=== PATIENT | female | born 1975 | race African-American/Black ===

== ENCOUNTER → 2016-09-26 | Outpatient (CLI) | payer MEDICARE, BC ==
[2016-01-03 12:40] VITALS: BP 98/75
[~2016-09-26] MED LIST: ARTANE PEG; ASCO-78 GT; BACL10TA PEG; CETI10CA PO; CETI10TA22 GT; DOCU50CA6 PO; DOXY50CA PEG; LORA-434 PEG; METO5TAB55 PEG; TIZA6CAP3 PO; ZINC50TA29 GT; ZINC50TA33 PEG; [UNRECOGNIZED DRUG - CODE] PO
[2016-09-26 12:11] LABS: BASO # 0.1 x10^3/uL (0.0-0.2); BASO % 0 % (0-3); EOS % 1 % (0-3); HEMATOCRIT 40.1 % (36.0-47.0); HEMOGLOBIN 13.2 g/dL (12.0-15.5); LYMPH # 3.8 x10^3/uL (1.0-4.8); LYMPH % 32 % (24-48); MEAN CORPUSCULAR HEMOGLOBIN 29 pg (25-35); MEAN CORPUSCULAR HGB CONC 33 g/dL (31-37); MEAN CORPUSCULAR VOLUME 88 fL (79-100); MONO % 8 % (0-9); NEUT % 59 % (31-73); PLATELET COUNT 197 x10^3/uL (140-400); RED BLOOD COUNT 4.54 x10^6/uL (3.50-5.40); RED CELL DISTRIBUTION WIDTH 13.1 % (11.5-14.5); WHITE BLOOD COUNT 11.8 x10^3/uL (4.0-11.0)
[2016-09-26 12:23] LABS: ALBUMIN 3.8 g/dL (3.4-5.0); ALBUMIN/GLOBULIN RATIO 0.7 (1.0-1.7); CALCIUM 8.9 mg/dL (8.5-10.1); CREATININE 0.9 mg/dL (0.6-1.0); GFR 83.5; POTASSIUM 4.1 mmol/L (3.5-5.1); TOTAL BILIRUBIN 0.4 mg/dL (0.2-1.0); TOTAL PROTEIN 8.9 g/dL (6.4-8.2)
== END | disposition home or self-care (01) ==
LOC: LAB 11:13
PROVIDERS: ATTEND Internal Medicine
DX: Z93.1 Gastrostomy status (principal); G93.1 Anoxic brain damage, not elsewhere classified
CPT/HCPCS: 36415; 80053; 85027

== ENCOUNTER → 2016-12-18 | Day surgery (SDC) | payer MEDICARE, BC ==
[~2016-12-18] MED LIST changes: +ACET160S PO; +CITA20TA5 PO; +CITR473S3 PO; +GLYCOPYRROLATE 1 MG/5 ML VIAL. ONE; +HYDROmorphone 2 MG/ML VIAL IV PRN; +IV RINGERS,LACTATED 1000ML 1,000 ML IV SCH; +KETAMINE HCL 500 MG/10 ML VIAL. ONE; +LIDOCAINE 1% PF 2 ML VIAL. ID PRN; +LIDOCAINE 2% PF Vial for OR 5 ML VIAL. ONE; +MIDAZOLAM HCL/PF 2 MG/2 ML VIAL. ONE; +MORPHINE SULFATE 2 MG/ML DISP.SYRIN. IV PRN; +ONDANSETRON PF 4 MG/2 ML VIAL. IV PRN; +PROPOFOL 0 ML IV ONE; +fentaNYL PF VIAL 100 MCG/2 ML VIAL IV PRN
[2016-12-18 13:47] VITALS: BP 107/70
--- NOTE | 2016-12-18 15:11 | HP ---
ADMIT DATE: 12/18/2016 DATE OF SERVICE: 12/18/2016 REASON: Dysfunctional G-tube oropharyngeal dysphagia. HISTORY OF PRESENT ILLNESS: A 41-year-old -Sudanese female whose past medical history is significant for anoxic brain injury, history of nephrolithiasis and anemia as well as gastroparesis, is seen with a dysfunctional G-tube. She has been on the tube for the past year and a half, had increased difficulties with feeding as well discoloration of the tube, family has requested replacement. PAST MEDICAL HISTORY: Anoxic brain injury, oropharyngeal dysphagia, nephrolithiasis, reflux. ALLERGIES: None. MEDICATIONS: Include acetaminophen, vitamin C, Zyrtec, citalopram, Colace, Ativan, Reglan, Zanaflex and Artane. SOCIAL HISTORY: She is cared by her mother. She does not drink or smoke. FAMILY HISTORY: Noncontributory. REVIEW OF SYSTEMS: Per records. PHYSICAL EXAMINATION: GENERAL: Reveals a female who has traumatic brain injury. VITAL SIGNS: Temperature 98.4, pulse 57, respirations 20. HEENT: Head is normocephalic, atraumatic. Pupils and extraocular muscles not tested. NECK: Reveal previous trach. LUNGS: Clear. CARDIOVASCULAR: Reveals an S1, S2 without S3, S4 or appreciable murmur. ABDOMEN: Soft abdomen with intact G-tube in the left upper quadrant. EXTREMITIES: She has flexion contractures on extremities. IMPRESSION: Oropharyngeal dysphagia with dysfunctional G-tube, will recommend EGD with PEG replacement. Risks and benefits of procedure including risk of perforation during the operation have been discussed. The patient is willing to proceed at this time. GUS FISCHER MD DR: JAMIA/kyler JOB#: [id number] / [id number]
== END | disposition home or self-care (01) ==
LOC: ENDOS 11:26
PROVIDERS: ATTEND Internal Medicine Gastroenterology
DX: K29.50 Unspecified chronic gastritis without bleeding (principal); K94.29 Other complications of gastrostomy; Y84.8 Other medical procedures as the cause of abnormal reaction of the patient, or of later complication, without mention of misadventure at the time of the procedure; Y82.8 Other medical devices associated with adverse incidents
CPT/HCPCS: 43246; J2250; J3490; J2704; J2001

== ENCOUNTER → 2017-08-27 | Outpatient (CLI) | payer MEDICARE, BC ==
[2017-08-27 11:43] LABS: ADD MAN DIFF? NO
[2017-08-27 12:01] LABS: BASO % 1 % (0-3); EOS # 0.2 x10^3/uL (0.0-0.7); EOS % 2 % (0-3); HEMATOCRIT 37.8 % (36.0-47.0); HEMOGLOBIN 12.6 g/dL (12.0-15.5); LYMPH # 3.6 x10^3/uL (1.0-4.8); LYMPH % 39 % (24-48); MEAN CORPUSCULAR HEMOGLOBIN 30 pg (25-35); MEAN CORPUSCULAR HGB CONC 33 g/dL (31-37); MEAN CORPUSCULAR VOLUME 89 fL (79-100); MONO # 0.8 x10^3/uL (0.0-1.1); MONO % 9 % (0-9); NEUT # 4.5 x10^3uL (1.8-7.7); NEUT % 49 % (31-73); PLATELET COUNT 204 x10^3/uL (140-400); RED BLOOD COUNT 4.27 x10^6/uL (3.50-5.40); RED CELL DISTRIBUTION WIDTH 13.6 % (11.5-14.5); WHITE BLOOD COUNT 9.1 x10^3/uL (4.0-11.0)
[2017-08-27 12:33] LABS: ALBUMIN 3.2 g/dL (3.4-5.0); ALBUMIN/GLOBULIN RATIO 0.6 (1.0-1.7); ALK PHOS 70 U/L (46-116); ALT (SGPT) 23 U/L (14-59); ANION GAP 5 (6-14); AST (SGOT) 19 U/L (15-37); BLOOD UREA NITROGEN 16 mg/dL (7-20); BUN/CREATININE RATIO 18 (6-20); CARBON DIOXIDE 28 mmol/L (21-32); CHLORIDE 105 mmol/L (98-107); CREATININE 0.9 mg/dL (0.6-1.0); GFR 83.1; GLUCOSE 86 mg/dL (70-99); POTASSIUM 4.4 mmol/L (3.5-5.1); SODIUM 138 mmol/L (136-145); TOTAL BILIRUBIN 0.4 mg/dL (0.2-1.0); TOTAL PROTEIN 8.2 g/dL (6.4-8.2)
[2017-08-27 12:37] LABS: THYROID STIM HORMONE (TSH) 4.345 uIU/mL (0.358-3.74)
== END | disposition home or self-care (01) ==
LOC: LAB 11:22
DX: Z48.89 Encounter for other specified surgical aftercare (principal); R63.5 Abnormal weight gain; Z93.1 Gastrostomy status
CPT/HCPCS: 36415; 80053; 84443; 85025

== ENCOUNTER 2017-09-23 12:38 | Emergency (ER) | payer MEDICARE, BC ==
[2017-09-23 13:30] LABS: ADD MAN DIFF? NO
[2017-09-23 13:33] LABS: BASO # 0.1 x10^3/uL (0.0-0.2); BASO % 0 % (0-3); EOS % 0 % (0-3); HEMATOCRIT 33.8 % (36.0-47.0); HEMOGLOBIN 11.4 g/dL (12.0-15.5); LYMPH # 1.8 x10^3/uL (1.0-4.8); LYMPH % 12 % (24-48); MEAN CORPUSCULAR HEMOGLOBIN 29 pg (25-35); MEAN CORPUSCULAR HGB CONC 34 g/dL (31-37); MEAN CORPUSCULAR VOLUME 86 fL (79-100); MONO # 1.8 x10^3/uL (0.0-1.1); MONO % 12 % (0-9); NEUT # 11.6 x10^3uL (1.8-7.7); NEUT % 76 % (31-73); PLATELET COUNT 184 x10^3/uL (140-400); RED BLOOD COUNT 3.91 x10^6/uL (3.50-5.40); RED CELL DISTRIBUTION WIDTH 13.2 % (11.5-14.5); WHITE BLOOD COUNT 15.2 x10^3/uL (4.0-11.0)
[2017-09-23 13:34] LABS: BILIRUBIN,URINE NEGATIVE (NEG); GLUCOSE,URINE NEGATIVE (NEG); NITRITE,URINE NEGATIVE (NEG); PROTEIN,URINE 100 mg/dL (NEG-TRACE)
[2017-09-23 13:40] LABS: ANION GAP 10 (6-14); BLOOD UREA NITROGEN 20 mg/dL (7-20); BUN/CREATININE RATIO 13 (6-20); CALCIUM 8.3 mg/dL (8.5-10.1); CARBON DIOXIDE 25 mmol/L (21-32); CHLORIDE 102 mmol/L (98-107); CREATININE 1.5 mg/dL (0.6-1.0); GFR 46.1; GLUCOSE 105 mg/dL (70-99); SODIUM 137 mmol/L (136-145)
[2017-09-23 13:44] LABS: CLARITY,URINE HAZY; COLOR,URINE DK YELLOW
[2017-09-23 13:45] LABS: BACTERIA,URINE MANY /HPF (0-FEW); RBC,URINE OCC /HPF (0-2); SQUAMOUS EPITHELIAL CELL,UR MOD /LPF
[2017-09-23 13:46] LABS: ALBUMIN 2.8 g/dL (3.4-5.0); ALBUMIN/GLOBULIN RATIO 0.6 (1.0-1.7); ALK PHOS 76 U/L (46-116); ALT (SGPT) 21 U/L (14-59); AST (SGOT) 20 U/L (15-37); TOTAL BILIRUBIN 0.7 mg/dL (0.2-1.0); TOTAL PROTEIN 7.8 g/dL (6.4-8.2)
[2017-09-23 13:49] LABS: LACTIC ACID 1.1 mmol/L (0.4-2.0)
[2017-09-23] MEDS: IV NORMAL SALINE 1000ML BAG 1,000 ML IV (14:24)
[2017-09-23] MEDS: tiZANidine 4 MG TABLET. GT (14:50)
== END 2017-09-23 16:24 | disposition home or self-care (01) ==
LOC: ER 12:38
DX: N39.0 Urinary tract infection, site not specified (principal); Z90.49 Acquired absence of other specified parts of digestive tract; Z98.890 Other specified postprocedural states
CPT/HCPCS: 36415; 71045; 80053; 81001; 83605; 85025; 87040; 87086; 87186; 96365; 99285-25; J0690; J7030; P9612

== ENCOUNTER 2017-09-27 12:32 | Inpatient (IN) | payer MEDICARE, BC ==
[2017-09-27 13:35] LABS: BILIRUBIN,URINE NEGATIVE (NEG); CLARITY,URINE CLEAR; COLOR,URINE YELLOW; GLUCOSE,URINE NEGATIVE (NEG); NITRITE,URINE NEGATIVE (NEG); PROTEIN,URINE 100 mg/dL (NEG-TRACE)
[2017-09-27 13:45] LABS: BACTERIA,URINE 0 /HPF (0-FEW); SQUAMOUS EPITHELIAL CELL,UR MOD /LPF
[2017-09-27] MEDS: MORPHINE SULFATE 4 MG/ML DISP.SYRIN. IV (14:49)
[2017-09-27] MEDS: IV NORMAL SALINE 1000ML BAG 1,000 ML IV ×4 (14:50→21:50)
[2017-09-27 15:01] LABS: ADD MAN DIFF? YES; BASO % 1 % (0-3); EOS % 1 % (0-3); HEMATOCRIT 37.7 % (36.0-47.0); HEMOGLOBIN 12.7 g/dL (12.0-15.5); LYMPH # 0.4 x10^3/uL (1.0-4.8); LYMPH % 9 % (24-48); MEAN CORPUSCULAR HEMOGLOBIN 29 pg (25-35); MEAN CORPUSCULAR HGB CONC 34 g/dL (31-37); MEAN CORPUSCULAR VOLUME 86 fL (79-100); MONO # 0.1 x10^3/uL (0.0-1.1); MONO % 2 % (0-9); NEUT # 3.4 x10^3uL (1.8-7.7); NEUT % 88 % (31-73); PLATELET COUNT 188 x10^3/uL (140-400); RED BLOOD COUNT 4.36 x10^6/uL (3.50-5.40); RED CELL DISTRIBUTION WIDTH 13.7 % (11.5-14.5); WHITE BLOOD COUNT 3.9 x10^3/uL (4.0-11.0)
[2017-09-27 15:14] LABS: ANION GAP 10 (6-14); BLOOD UREA NITROGEN 28 mg/dL (7-20); BUN/CREATININE RATIO 19 (6-20); CALCIUM 9.2 mg/dL (8.5-10.1); CARBON DIOXIDE 27 mmol/L (21-32); CHLORIDE 101 mmol/L (98-107); CREATININE 1.5 mg/dL (0.6-1.0); GFR 46.1; GLUCOSE 85 mg/dL (70-99); POTASSIUM 4.1 mmol/L (3.5-5.1); SODIUM 138 mmol/L (136-145)
[2017-09-27 15:20] LABS: ALBUMIN 2.3 g/dL (3.4-5.0); ALBUMIN/GLOBULIN RATIO 0.4 (1.0-1.7); ALK PHOS 333 U/L (46-116); ALT (SGPT) 74 U/L (14-59); AST (SGOT) 57 U/L (15-37); TOTAL BILIRUBIN 0.9 mg/dL (0.2-1.0); TOTAL PROTEIN 7.6 g/dL (6.4-8.2)
[2017-09-27 15:45] LABS: LIPASE 178 U/L (73-393)
[2017-09-27 15:47] LABS: LACTIC ACID 4.1 mmol/L (0.4-2.0)
[2017-09-27 15:55] LABS: % BANDS 15 % (0-9); % EOS 1 % (0-5); % LYMPHS 10 % (24-48); % SEGS 74 % (35-66); PLT ESTIMATE ADEQUATE (ADEQUATE); TOXIC VACUOLATION PRESENT
[2017-09-27] MEDS: IOHEXOL 300 MG/ML 100ML VIAL. IV (16:15)
[2017-09-27] MEDS ORDERED: CONTRAST GIVEN. MC (16:15)
[2017-09-27] MEDS: IBUPROFEN 100 MG/5 ML ORAL.SUSP. GT (16:57)
[2017-09-27] MEDS ORDERED: PIP/TAZO PER PHARMACY MC (17:00)
[2017-09-27] MEDS ORDERED: hydrALAZINE 20 MG/ML VIAL. IVP (17:00)
[2017-09-27] MEDS ORDERED: DOCUSATE SODIUM 100 MG CAPSULE. PO (17:00)
[2017-09-27] MEDS ORDERED: PIPERACILLIN/TAZOBACTAM 3.375 GM in IV NORMAL SALINE 50ML 50 ML IV (17:15)
[2017-09-27] MEDS: PIPERACILLIN/TAZOBACTAM 4.5 GM in IV NORMAL SALINE 100ML 100 ML IV (17:55)
[2017-09-27] MEDS ORDERED: PIPERACILLIN/TAZOBACTAM 4.5 GM in IV NORMAL SALINE 100ML 100 ML IV (18:00)
[2017-09-27] MEDS: VANCOMYCIN 2 GM in IV NORMAL SALINE 500ML BAG 500 ML IV (18:03)
[2017-09-27] MEDS: LIDOCAINE 1% Multi-Dose 20 ML VIAL. INJ (18:15)
[2017-09-27] MEDS ORDERED: ROCURONIUM 50 MG/5 ML VIAL. (19:00)
[2017-09-27] MEDS ORDERED: PROPOFOL 10 MG/ML (20ML) VIAL. IV (19:00)
[2017-09-27] MEDS ORDERED: PHENYLEPHRINE in 0.9% NACL PF 1 MG/10 ML SYRINGE. IV (19:00)
[2017-09-27] MEDS ORDERED: GLYCOPYRROLATE 1 MG/5 ML VIAL. (19:00)
[2017-09-27] MEDS ORDERED: NEOSTIGMINE METHYLSULFATE 5 MG/5 ML SYRINGE. (19:00)
[2017-09-27] MEDS ORDERED: NOREPINEPHRIN 8MG/250ML PREMIX 250 ML IV (19:15)
[2017-09-27] MEDS: VANCOMYCIN PER PHARMACY MC ×2 (19:29→19:39)
[2017-09-27] MEDS: ENOXAPARIN 40 MG/0.4 ML SYRINGE. SQ (20:11)
[2017-09-27] MEDS: FAMOTIDINE 20 MG/2 ML VIAL IVP (21:50)
[2017-09-27 22:22] LABS: LACTIC ACID 1.6 mmol/L (0.4-2.0)
[2017-09-28] MEDS: PIPERACILLIN/TAZOBACTAM 3.375 GM in IV NORMAL SALINE 50ML 50 ML IV ×4 (00:11→18:33)
[2017-09-28] MEDS: IV NORMAL SALINE 1000ML BAG 1,000 ML IV ×2 (06:01→21:04)
[2017-09-28 06:24] LABS: BASO # 0.1 x10^3/uL (0.0-0.2); BASO % 0 % (0-3); EOS # 0.1 x10^3/uL (0.0-0.7); EOS % 1 % (0-3); HEMATOCRIT 27.8 % (36.0-47.0); HEMOGLOBIN 9.4 g/dL (12.0-15.5); LYMPH # 1.2 x10^3/uL (1.0-4.8); LYMPH % 6 % (24-48); MEAN CORPUSCULAR HEMOGLOBIN 29 pg (25-35); MEAN CORPUSCULAR HGB CONC 34 g/dL (31-37); MEAN CORPUSCULAR VOLUME 85 fL (79-100); MONO # 1.3 x10^3/uL (0.0-1.1); MONO % 7 % (0-9); NEUT % 87 % (31-73); PLATELET COUNT 188 x10^3/uL (140-400); RED BLOOD COUNT 3.27 x10^6/uL (3.50-5.40); RED CELL DISTRIBUTION WIDTH 13.9 % (11.5-14.5); WHITE BLOOD COUNT 19.7 x10^3/uL (4.0-11.0)
[2017-09-28 06:31] LABS: ADD MAN DIFF? YES
[2017-09-28 06:35] LABS: ANION GAP 8 (6-14); BLOOD UREA NITROGEN 22 mg/dL (7-20); CARBON DIOXIDE 24 mmol/L (21-32); CHLORIDE 112 mmol/L (98-107); CREATININE 1.6 mg/dL (0.6-1.0); GFR 42.8; GLUCOSE 75 mg/dL (70-99); POTASSIUM 4.1 mmol/L (3.5-5.1); SODIUM 144 mmol/L (136-145)
[2017-09-28 06:44] LABS: LACTIC ACID 1.1 mmol/L (0.4-2.0)
[2017-09-28 07:56] LABS: % BANDS 20 % (0-9); % LYMPHS 4 % (24-48); % MONOS 6 % (0-10); % SEGS 70 % (35-66); PLT ESTIMATE ADEQUATE (ADEQUATE); TOXIC VACUOLATION PRESENT
[2017-09-28] MEDS: VANCOMYCIN PER PHARMACY MC (08:49)
[2017-09-28] MEDS ORDERED: CETIRIZINE HCL 10 MG TABLET. GT (09:45)
[2017-09-28] MEDS: DOCUSATE 100 MG/10 ML SOLUTION. PO (10:00)
[2017-09-28 10:18] LABS: INR 1.2 (0.8-1.1); PARTIAL THROMBOPLASTIN TIME 33 SEC (24-38)
[2017-09-28] MEDS ORDERED: IV RINGERS,LACTATED 1000ML 1,000 ML IV ×2 (10:23→14:45)
[2017-09-28 11:14] LABS: ALK PHOS 198 U/L (46-116); ALT (SGPT) 74 U/L (14-59); AST (SGOT) 54 U/L (15-37); DIRECT BILIRUBIN 0.5 mg/dL (0.0-0.2); TOTAL BILIRUBIN 0.9 mg/dL (0.2-1.0); TOTAL PROTEIN 6.7 g/dL (6.4-8.2)
[2017-09-28] MEDS: fentaNYL PF VIAL 100 MCG/2 ML VIAL IV ×5 (12:25→15:22)
[2017-09-28] MEDS ORDERED: IOHEXOL 240 MG/ML 50ML VIAL. (13:05)
[2017-09-28] MEDS ORDERED: LIDOCAINE WITH 8.4% SOD BICARB 3 ML DISP.SYRIN. (13:05)
[2017-09-28] MEDS: LIDOCAINE WITH 8.4% SOD BICARB 3 ML DISP.SYRIN. IJ (13:15)
[2017-09-28] MEDS: IOHEXOL 240 MG/ML 50ML VIAL. INT ART (13:15)
[2017-09-28] MEDS ORDERED: fentaNYL PF VIAL 100 MCG/2 ML VIAL ×3 (14:26→15:07)
[2017-09-28] MEDS ORDERED: fentaNYL PF VIAL 100 MCG/2 ML VIAL IV (14:45)
[2017-09-28] MEDS ORDERED: ONDANSETRON PF 4 MG/2 ML VIAL. IV (14:45)
[2017-09-28] MEDS ORDERED: LIDOCAINE 1% PF 2 ML VIAL. ID (14:45)
[2017-09-28] MEDS ORDERED: MORPHINE SULFATE 2 MG/ML DISP.SYRIN. ×2 (15:07→15:48)
[2017-09-28] MEDS: MORPHINE SULFATE 2 MG/ML DISP.SYRIN. IV ×4 (15:16→16:02)
[2017-09-28] MEDS ORDERED: PROCHLORPERAZINE 10 MG/2 ML VIAL. (15:28)
[2017-09-28] MEDS: PROCHLORPERAZINE 10 MG/2 ML VIAL. IV ×2 (15:34→15:46)
[2017-09-28] MEDS ORDERED: VANCOMYCIN 1.25 GM in IV NORMAL SALINE 250ML 250 ML IV (18:00)
[2017-09-28] MEDS: LORazepam 1 MG TABLET PEG ×2 (18:26→18:31)
[2017-09-28] MEDS: ACETAMINOPHEN 325 MG TABLET. PO (18:26)
[2017-09-28] MEDS: CITALOPRAM 20 MG TABLET. PO (18:26)
[2017-09-28] MEDS: ENOXAPARIN 40 MG/0.4 ML SYRINGE. SQ (18:34)
[2017-09-28 20:15] LABS: MRSA BY PCR Negative (Negative)
[2017-09-29] MEDS: LORazepam 1 MG TABLET PEG ×4 (00:07→21:30)
[2017-09-29] MEDS: PIPERACILLIN/TAZOBACTAM 3.375 GM in IV NORMAL SALINE 50ML 50 ML IV ×4 (00:08→18:32)
[2017-09-29] MEDS: FAMOTIDINE 20 MG/2 ML VIAL IVP ×2 (00:08→21:30)
[2017-09-29] MEDS: tiZANidine 4 MG TABLET. PO (00:23)
[2017-09-29] MEDS: traMADol 50 MG TABLET PO (00:23)
[2017-09-29] MEDS: IV NORMAL SALINE 1000ML BAG 1,000 ML IV ×3 (05:33→21:34)
[2017-09-29] MEDS: ACETAMINOPHEN 325 MG TABLET. PO (10:48)
[2017-09-29] MEDS: DOCUSATE 100 MG/10 ML SOLUTION. PO (10:48)
[2017-09-29] MEDS: CITALOPRAM 20 MG TABLET. PO (10:48)
[2017-09-29] MEDS: fentaNYL PF VIAL 100 MCG/2 ML VIAL IV (10:49)
[2017-09-29] MEDS: MORPHINE SULFATE 2 MG/ML DISP.SYRIN. IV ×3 (13:41→21:30)
[2017-09-29 17:47] LABS: VANC TR 5.3 mcg/mL (10.0-20.0)
[2017-09-29] MEDS: ENOXAPARIN 40 MG/0.4 ML SYRINGE. SQ (18:36)
[2017-09-30] MEDS: PIPERACILLIN/TAZOBACTAM 3.375 GM in IV NORMAL SALINE 50ML 50 ML IV ×2 (01:00→06:34)
[2017-09-30] MEDS: MORPHINE SULFATE 2 MG/ML DISP.SYRIN. IV ×3 (03:20→20:11)
[2017-09-30] MEDS: IV NORMAL SALINE 1000ML BAG 1,000 ML IV ×3 (03:21→16:38)
[2017-09-30] MEDS: DOCUSATE 100 MG/10 ML SOLUTION. PO (09:58)
[2017-09-30] MEDS: LORazepam 1 MG TABLET PEG ×3 (09:58→20:12)
[2017-09-30] MEDS: CITALOPRAM 20 MG TABLET. PO (09:58)
[2017-09-30 10:31] LABS: BILIRUBIN,URINE NEGATIVE (NEG); CLARITY,URINE TURBID; COLOR,URINE YELLOW; GLUCOSE,URINE NEGATIVE (NEG); NITRITE,URINE NEGATIVE (NEG); PROTEIN,URINE 100 mg/dL (NEG-TRACE)
[2017-09-30 10:46] LABS: WBC,URINE TNTC /HPF (0-4)
[2017-09-30 10:47] LABS: BACTERIA,URINE MODERATE /HPF (0-FEW); RBC,URINE >40 /HPF (0-2)
[2017-09-30] MEDS: ACETAMINOPHEN 325 MG TABLET. PO (11:41)
[2017-09-30] MEDS: tiZANidine 4 MG TABLET. PO ×2 (11:44→20:11)
[2017-09-30] MEDS ORDERED: POLYETHYLENE GLYCOL 3350 17 GM PACKET. PEG (12:45)
[2017-09-30] MEDS: MEROPENEM 500 MG in IV NORMAL SALINE 50ML 50 ML IV ×2 (13:11→20:10)
[2017-09-30 13:39] LABS: ADD MAN DIFF? NO
[2017-09-30 13:46] LABS: BASO % 0 % (0-3); EOS # 0.1 x10^3/uL (0.0-0.7); EOS % 1 % (0-3); HEMATOCRIT 23.7 % (36.0-47.0); LYMPH # 1.9 x10^3/uL (1.0-4.8); LYMPH % 11 % (24-48); MEAN CORPUSCULAR HEMOGLOBIN 29 pg (25-35); MEAN CORPUSCULAR HGB CONC 34 g/dL (31-37); MEAN CORPUSCULAR VOLUME 85 fL (79-100); MONO # 1.2 x10^3/uL (0.0-1.1); MONO % 7 % (0-9); NEUT # 13.4 x10^3uL (1.8-7.7); NEUT % 80 % (31-73); PLATELET COUNT 185 x10^3/uL (140-400); RED BLOOD COUNT 2.79 x10^6/uL (3.50-5.40); RED CELL DISTRIBUTION WIDTH 13.9 % (11.5-14.5); WHITE BLOOD COUNT 16.7 x10^3/uL (4.0-11.0)
[2017-09-30 14:20] LABS: ALBUMIN 1.7 g/dL (3.4-5.0); ALBUMIN/GLOBULIN RATIO 0.4 (1.0-1.7); ALK PHOS 207 U/L (46-116); ALT (SGPT) 43 U/L (14-59); ANION GAP 13 (6-14); AST (SGOT) 30 U/L (15-37); BLOOD UREA NITROGEN 16 mg/dL (7-20); BUN/CREATININE RATIO 15 (6-20); CALCIUM 7.4 mg/dL (8.5-10.1); CARBON DIOXIDE 18 mmol/L (21-32); CHLORIDE 118 mmol/L (98-107); CREATININE 1.1 mg/dL (0.6-1.0); GFR 65.9; GLUCOSE 90 mg/dL (70-99); POTASSIUM 3.6 mmol/L (3.5-5.1); SODIUM 149 mmol/L (136-145); TOTAL BILIRUBIN 0.7 mg/dL (0.2-1.0); TOTAL PROTEIN 6.2 g/dL (6.4-8.2)
[2017-09-30] MEDS: ENOXAPARIN 40 MG/0.4 ML SYRINGE. SQ (20:11)
[2017-09-30] MEDS: FAMOTIDINE 20 MG/2 ML VIAL IVP (20:11)
[2017-10-01] MEDS ORDERED: tiZANidine 4 MG TABLET. PO ×2 (00:30)
[2017-10-01] MEDS: tiZANidine 4 MG TABLET. PO ×3 (00:52→09:48)
[2017-10-01] MEDS: MEROPENEM 500 MG in IV NORMAL SALINE 50ML 50 ML IV ×4 (00:53→17:41)
[2017-10-01] MEDS: IV NORMAL SALINE 1000ML BAG 1,000 ML IV ×3 (00:55→20:22)
[2017-10-01 06:08] LABS: ADD MAN DIFF? NO
[2017-10-01 06:19] LABS: ANION GAP 10 (6-14); BLOOD UREA NITROGEN 16 mg/dL (7-20); CALCIUM 7.8 mg/dL (8.5-10.1); CARBON DIOXIDE 20 mmol/L (21-32); CHLORIDE 118 mmol/L (98-107); GFR 73.6; GLUCOSE 103 mg/dL (70-99); POTASSIUM 3.5 mmol/L (3.5-5.1); SODIUM 148 mmol/L (136-145)
[2017-10-01 06:25] LABS: BASO % 0 % (0-3); EOS # 0.2 x10^3/uL (0.0-0.7); EOS % 1 % (0-3); HEMATOCRIT 25.6 % (36.0-47.0); HEMOGLOBIN 8.5 g/dL (12.0-15.5); LYMPH # 2.6 x10^3/uL (1.0-4.8); LYMPH % 15 % (24-48); MEAN CORPUSCULAR HEMOGLOBIN 28 pg (25-35); MEAN CORPUSCULAR HGB CONC 33 g/dL (31-37); MEAN CORPUSCULAR VOLUME 85 fL (79-100); MONO # 1.4 x10^3/uL (0.0-1.1); MONO % 8 % (0-9); NEUT # 12.7 x10^3uL (1.8-7.7); NEUT % 75 % (31-73); PLATELET COUNT 193 x10^3/uL (140-400); RED BLOOD COUNT 3.02 x10^6/uL (3.50-5.40); WHITE BLOOD COUNT 16.9 x10^3/uL (4.0-11.0)
[2017-10-01] MEDS: LORazepam 1 MG TABLET PEG ×3 (09:00→20:23)
[2017-10-01] MEDS: CITALOPRAM 20 MG TABLET. PO (09:48)
[2017-10-01] MEDS: DOCUSATE 100 MG/10 ML SOLUTION. PO (09:48)
[2017-10-01] MEDS: ACETAMINOPHEN 650 MG/20.3 ML SOLUTION. PEG (10:29)
[2017-10-01] MEDS: tiZANidine 4 MG TABLET. PEG ×2 (14:58→20:23)
[2017-10-01] MEDS: ENOXAPARIN 40 MG/0.4 ML SYRINGE. SQ (17:41)
[2017-10-01] MEDS: FAMOTIDINE 20 MG TABLET. PEG (20:23)
[2017-10-02] MEDS: MEROPENEM 500 MG in IV NORMAL SALINE 50ML 50 ML IV ×4 (00:26→16:07)
[2017-10-02] MEDS: MORPHINE SULFATE 2 MG/ML DISP.SYRIN. IV ×3 (00:27→12:03)
[2017-10-02] MEDS: IV NORMAL SALINE 1000ML BAG 1,000 ML IV ×3 (01:00→16:05)
[2017-10-02] MEDS: tiZANidine 4 MG TABLET. PEG ×4 (02:58→21:00)
[2017-10-02 05:45] LABS: ADD MAN DIFF? NO
[2017-10-02 06:07] LABS: ANION GAP 10 (6-14); BLOOD UREA NITROGEN 13 mg/dL (7-20); CARBON DIOXIDE 21 mmol/L (21-32); CHLORIDE 115 mmol/L (98-107); CREATININE 0.8 mg/dL (0.6-1.0); GFR 95.2; GLUCOSE 114 mg/dL (70-99); POTASSIUM 3.2 mmol/L (3.5-5.1); SODIUM 146 mmol/L (136-145)
[2017-10-02 06:29] LABS: BASO # 0.1 x10^3/uL (0.0-0.2); BASO % 0 % (0-3); EOS # 0.3 x10^3/uL (0.0-0.7); EOS % 1 % (0-3); HEMATOCRIT 24.1 % (36.0-47.0); LYMPH # 2.7 x10^3/uL (1.0-4.8); LYMPH % 11 % (24-48); MEAN CORPUSCULAR HEMOGLOBIN 29 pg (25-35); MEAN CORPUSCULAR HGB CONC 33 g/dL (31-37); MEAN CORPUSCULAR VOLUME 86 fL (79-100); MONO # 1.4 x10^3/uL (0.0-1.1); MONO % 6 % (0-9); NEUT # 19.4 x10^3uL (1.8-7.7); NEUT % 81 % (31-73); PLATELET COUNT 230 x10^3/uL (140-400); RED CELL DISTRIBUTION WIDTH 14.2 % (11.5-14.5); WHITE BLOOD COUNT 23.9 x10^3/uL (4.0-11.0)
[2017-10-02] MEDS: DOCUSATE 100 MG/10 ML SOLUTION. PO (08:02)
[2017-10-02] MEDS: CITALOPRAM 20 MG TABLET. PO (08:02)
[2017-10-02] MEDS: LORazepam 1 MG TABLET PEG ×3 (08:02→21:01)
[2017-10-02] MEDS: MICAFUNGIN 100 MG in IV DEXTROSE 5% 100ML 100 ML IV (12:49)
[2017-10-02] MEDS: IOHEXOL 300 MG/ML 100ML VIAL. IV (13:30)
[2017-10-02] MEDS: IOHEXOL 240 MG/ML 50ML VIAL. PO ×2 (13:30→15:30)
[2017-10-02] MEDS ORDERED: CONTRAST GIVEN. MC (13:45)
[2017-10-02] MEDS: ACETAMINOPHEN 650 MG/20.3 ML SOLUTION. PEG ×2 (16:06→23:12)
[2017-10-02] MEDS: ENOXAPARIN 40 MG/0.4 ML SYRINGE. SQ (16:06)
[2017-10-02] MEDS: FAMOTIDINE 20 MG TABLET. PEG (21:01)
[2017-10-03] MEDS: tiZANidine 4 MG TABLET. PEG ×7 (00:31→23:34)
[2017-10-03] MEDS: MEROPENEM 500 MG in IV NORMAL SALINE 50ML 50 ML IV ×5 (00:32→23:34)
[2017-10-03] MEDS: IV NORMAL SALINE 1000ML BAG 1,000 ML IV ×4 (00:32→23:34)
[2017-10-03 06:25] LABS: ANION GAP 8 (6-14); BLOOD UREA NITROGEN 8 mg/dL (7-20); CALCIUM 7.2 mg/dL (8.5-10.1); CARBON DIOXIDE 23 mmol/L (21-32); CHLORIDE 111 mmol/L (98-107); CREATININE 0.8 mg/dL (0.6-1.0); GFR 95.2; GLUCOSE 102 mg/dL (70-99); POTASSIUM 3.1 mmol/L (3.5-5.1); SODIUM 142 mmol/L (136-145)
[2017-10-03] MEDS: DOCUSATE 100 MG/10 ML SOLUTION. PO (07:34)
[2017-10-03] MEDS: ACETAMINOPHEN 650 MG/20.3 ML SOLUTION. PEG (07:42)
[2017-10-03] MEDS: CITALOPRAM 20 MG TABLET. PO (07:42)
[2017-10-03] MEDS: LORazepam 1 MG TABLET PEG ×3 (07:42→19:58)
[2017-10-03] MEDS: MICAFUNGIN 100 MG in IV DEXTROSE 5% 100ML 100 ML IV (11:53)
[2017-10-03 12:14] LABS: ADD MAN DIFF? NO; BASO % 0 % (0-3); EOS # 0.4 x10^3/uL (0.0-0.7); EOS % 2 % (0-3); HEMATOCRIT 24.6 % (36.0-47.0); HEMOGLOBIN 8.3 g/dL (12.0-15.5); LYMPH # 3.4 x10^3/uL (1.0-4.8); LYMPH % 22 % (24-48); MEAN CORPUSCULAR HEMOGLOBIN 29 pg (25-35); MEAN CORPUSCULAR HGB CONC 34 g/dL (31-37); MEAN CORPUSCULAR VOLUME 85 fL (79-100); MONO # 1.4 x10^3/uL (0.0-1.1); MONO % 9 % (0-9); NEUT # 10.5 x10^3uL (1.8-7.7); NEUT % 67 % (31-73); PLATELET COUNT 260 x10^3/uL (140-400); RED BLOOD COUNT 2.91 x10^6/uL (3.50-5.40); RED CELL DISTRIBUTION WIDTH 13.9 % (11.5-14.5); WHITE BLOOD COUNT 15.8 x10^3/uL (4.0-11.0)
[2017-10-03] MEDS: ENOXAPARIN 40 MG/0.4 ML SYRINGE. SQ (17:21)
[2017-10-03] MEDS: FAMOTIDINE 20 MG TABLET. PEG (19:59)
[2017-10-03] MEDS: ONDANSETRON PF 4 MG/2 ML VIAL. IV (20:08)
[2017-10-04] MEDS: tiZANidine 4 MG TABLET. PEG ×6 (03:41→23:51)
[2017-10-04] MEDS: MORPHINE SULFATE 2 MG/ML DISP.SYRIN. IV (03:53)
[2017-10-04] MEDS: ONDANSETRON PF 4 MG/2 ML VIAL. IV ×3 (05:23→16:35)
[2017-10-04] MEDS: MEROPENEM 500 MG in IV NORMAL SALINE 50ML 50 ML IV ×4 (05:23→23:51)
[2017-10-04] MEDS: DOCUSATE 100 MG/10 ML SOLUTION. PO (08:31)
[2017-10-04] MEDS: CITALOPRAM 20 MG TABLET. PO (08:31)
[2017-10-04] MEDS: LORazepam 1 MG TABLET PEG ×3 (08:31→20:13)
[2017-10-04] MEDS: IV NORMAL SALINE 1000ML BAG 1,000 ML IV ×3 (09:00→23:55)
[2017-10-04 11:42] LABS: ADD MAN DIFF? NO
[2017-10-04 11:51] LABS: ANION GAP 5 (6-14); BLOOD UREA NITROGEN 6 mg/dL (7-20); CALCIUM 7.3 mg/dL (8.5-10.1); CARBON DIOXIDE 26 mmol/L (21-32); CHLORIDE 111 mmol/L (98-107); CREATININE 0.8 mg/dL (0.6-1.0); GFR 95.2; GLUCOSE 93 mg/dL (70-99); POTASSIUM 3.1 mmol/L (3.5-5.1); SODIUM 142 mmol/L (136-145)
[2017-10-04 11:55] LABS: BASO % 0 % (0-3); EOS # 0.2 x10^3/uL (0.0-0.7); EOS % 2 % (0-3); HEMATOCRIT 23.7 % (36.0-47.0); HEMOGLOBIN 8.1 g/dL (12.0-15.5); LYMPH # 2.5 x10^3/uL (1.0-4.8); LYMPH % 19 % (24-48); MEAN CORPUSCULAR HEMOGLOBIN 29 pg (25-35); MEAN CORPUSCULAR HGB CONC 34 g/dL (31-37); MEAN CORPUSCULAR VOLUME 85 fL (79-100); MONO # 0.9 x10^3/uL (0.0-1.1); MONO % 7 % (0-9); NEUT # 9.4 x10^3uL (1.8-7.7); NEUT % 72 % (31-73); PLATELET COUNT 329 x10^3/uL (140-400); RED BLOOD COUNT 2.77 x10^6/uL (3.50-5.40); RED CELL DISTRIBUTION WIDTH 13.8 % (11.5-14.5); WHITE BLOOD COUNT 13.1 x10^3/uL (4.0-11.0)
[2017-10-04] MEDS: MICAFUNGIN 100 MG in IV DEXTROSE 5% 100ML 100 ML IV (12:25)
[2017-10-04] MEDS: ACETAMINOPHEN 650 MG/20.3 ML SOLUTION. PEG (12:31)
[2017-10-04] MEDS: METOCLOPRAMIDE HCL 10 MG/2 ML VIAL. IV ×2 (16:16→20:13)
[2017-10-04] MEDS: FAMOTIDINE 20 MG TABLET. PEG (20:13)
[2017-10-04] MEDS: ENOXAPARIN 40 MG/0.4 ML SYRINGE. SQ (20:13)
[2017-10-05] MEDS: tiZANidine 4 MG TABLET. PEG ×5 (04:27→22:12)
[2017-10-05] MEDS: MORPHINE SULFATE 2 MG/ML DISP.SYRIN. IV (04:38)
[2017-10-05 04:42] LABS: ADD MAN DIFF? NO
[2017-10-05 04:44] LABS: BASO # 0.1 x10^3/uL (0.0-0.2); BASO % 1 % (0-3); EOS # 0.2 x10^3/uL (0.0-0.7); EOS % 2 % (0-3); HEMATOCRIT 26.1 % (36.0-47.0); HEMOGLOBIN 8.7 g/dL (12.0-15.5); LYMPH # 2.7 x10^3/uL (1.0-4.8); LYMPH % 23 % (24-48); MEAN CORPUSCULAR HEMOGLOBIN 29 pg (25-35); MEAN CORPUSCULAR HGB CONC 34 g/dL (31-37); MEAN CORPUSCULAR VOLUME 86 fL (79-100); MONO # 0.9 x10^3/uL (0.0-1.1); MONO % 7 % (0-9); NEUT % 68 % (31-73); PLATELET COUNT 357 x10^3/uL (140-400); RED BLOOD COUNT 3.03 x10^6/uL (3.50-5.40); RED CELL DISTRIBUTION WIDTH 13.8 % (11.5-14.5); WHITE BLOOD COUNT 11.8 x10^3/uL (4.0-11.0)
[2017-10-05 05:14] LABS: ANION GAP 8 (6-14); BLOOD UREA NITROGEN 6 mg/dL (7-20); CALCIUM 7.2 mg/dL (8.5-10.1); CARBON DIOXIDE 24 mmol/L (21-32); CHLORIDE 110 mmol/L (98-107); CREATININE 0.7 mg/dL (0.6-1.0); GLUCOSE 82 mg/dL (70-99); POTASSIUM 3.2 mmol/L (3.5-5.1); SODIUM 142 mmol/L (136-145)
[2017-10-05] MEDS: MEROPENEM 500 MG in IV NORMAL SALINE 50ML 50 ML IV (05:56)
[2017-10-05] MEDS: DOCUSATE 100 MG/10 ML SOLUTION. PO (08:46)
[2017-10-05] MEDS: CITALOPRAM 20 MG TABLET. PO (08:47)
[2017-10-05] MEDS: METOCLOPRAMIDE HCL 10 MG/2 ML VIAL. IV ×4 (08:47→22:08)
[2017-10-05] MEDS: LORazepam 1 MG TABLET PEG ×3 (08:47→22:12)
[2017-10-05] MEDS: IV NORMAL SALINE 1000ML BAG 1,000 ML IV ×3 (08:48→22:08)
[2017-10-05] MEDS: ONDANSETRON PF 4 MG/2 ML VIAL. IV ×2 (09:49→16:48)
[2017-10-05] MEDS: cefTRIAXone IV Push 1 GM VIAL. IVP (11:36)
[2017-10-05] MEDS: ACETAMINOPHEN 650 MG/20.3 ML SOLUTION. PEG (16:35)
[2017-10-05] MEDS: ENOXAPARIN 40 MG/0.4 ML SYRINGE. SQ (18:00)
[2017-10-05] MEDS: FAMOTIDINE 20 MG TABLET. PEG (22:12)
[2017-10-06] MEDS: tiZANidine 4 MG TABLET. PEG ×7 (00:47→23:29)
[2017-10-06] MEDS: ONDANSETRON PF 4 MG/2 ML VIAL. IV (00:58)
[2017-10-06] MEDS: MORPHINE SULFATE 2 MG/ML DISP.SYRIN. IV (02:26)
[2017-10-06 05:36] LABS: ADD MAN DIFF? NO
[2017-10-06 05:40] LABS: BASO % 0 % (0-3); EOS # 0.2 x10^3/uL (0.0-0.7); EOS % 2 % (0-3); HEMATOCRIT 22.8 % (36.0-47.0); HEMOGLOBIN 7.8 g/dL (12.0-15.5); LYMPH # 1.8 x10^3/uL (1.0-4.8); LYMPH % 19 % (24-48); MEAN CORPUSCULAR HEMOGLOBIN 30 pg (25-35); MEAN CORPUSCULAR HGB CONC 34 g/dL (31-37); MEAN CORPUSCULAR VOLUME 87 fL (79-100); MONO # 0.6 x10^3/uL (0.0-1.1); MONO % 7 % (0-9); NEUT # 6.9 x10^3uL (1.8-7.7); NEUT % 72 % (31-73); PLATELET COUNT 384 x10^3/uL (140-400); RED BLOOD COUNT 2.62 x10^6/uL (3.50-5.40); RED CELL DISTRIBUTION WIDTH 13.8 % (11.5-14.5); WHITE BLOOD COUNT 9.5 x10^3/uL (4.0-11.0)
[2017-10-06 06:22] LABS: ANION GAP 7 (6-14); BLOOD UREA NITROGEN 6 mg/dL (7-20); CARBON DIOXIDE 25 mmol/L (21-32); CHLORIDE 113 mmol/L (98-107); CREATININE 0.7 mg/dL (0.6-1.0); GLUCOSE 102 mg/dL (70-99); SODIUM 145 mmol/L (136-145)
[2017-10-06 06:24] LABS: POTASSIUM 3.6 mmol/L (3.5-5.1)
[2017-10-06] MEDS: IV NORMAL SALINE 1000ML BAG 1,000 ML IV ×3 (06:29→23:53)
[2017-10-06] MEDS: DOCUSATE 100 MG/10 ML SOLUTION. PO (09:00)
[2017-10-06] MEDS: CITALOPRAM 20 MG TABLET. PO (10:18)
[2017-10-06] MEDS: ACETAMINOPHEN 650 MG/20.3 ML SOLUTION. PEG ×3 (10:18→21:18)
[2017-10-06] MEDS: LORazepam 1 MG TABLET PEG ×3 (10:18→21:18)
[2017-10-06] MEDS: METOCLOPRAMIDE HCL 10 MG/2 ML VIAL. IV ×4 (10:19→21:18)
[2017-10-06] MEDS: cefTRIAXone IV Push 1 GM VIAL. IVP (10:20)
[2017-10-06] MEDS: ENOXAPARIN 40 MG/0.4 ML SYRINGE. SQ (19:45)
[2017-10-06] MEDS: FAMOTIDINE 20 MG TABLET. PEG (21:18)
[2017-10-07] MEDS: tiZANidine 4 MG TABLET. PEG ×3 (04:21→12:10)
[2017-10-07 04:42] LABS: ADD MAN DIFF? NO
[2017-10-07 04:58] LABS: BASO % 0 % (0-3); EOS # 0.2 x10^3/uL (0.0-0.7); EOS % 2 % (0-3); HEMATOCRIT 24.9 % (36.0-47.0); HEMOGLOBIN 8.6 g/dL (12.0-15.5); LYMPH # 2.9 x10^3/uL (1.0-4.8); LYMPH % 27 % (24-48); MEAN CORPUSCULAR HEMOGLOBIN 30 pg (25-35); MEAN CORPUSCULAR HGB CONC 34 g/dL (31-37); MEAN CORPUSCULAR VOLUME 87 fL (79-100); MONO # 0.9 x10^3/uL (0.0-1.1); MONO % 8 % (0-9); NEUT # 6.8 x10^3uL (1.8-7.7); NEUT % 63 % (31-73); PLATELET COUNT 474 x10^3/uL (140-400); RED BLOOD COUNT 2.88 x10^6/uL (3.50-5.40); RED CELL DISTRIBUTION WIDTH 13.7 % (11.5-14.5); WHITE BLOOD COUNT 10.8 x10^3/uL (4.0-11.0)
[2017-10-07 05:09] LABS: ANION GAP 5 (6-14); BLOOD UREA NITROGEN 6 mg/dL (7-20); CALCIUM 7.4 mg/dL (8.5-10.1); CARBON DIOXIDE 28 mmol/L (21-32); CHLORIDE 110 mmol/L (98-107); CREATININE 0.6 mg/dL (0.6-1.0); GFR 132.7; GLUCOSE 81 mg/dL (70-99); POTASSIUM 3.5 mmol/L (3.5-5.1); SODIUM 143 mmol/L (136-145)
[2017-10-07] MEDS: CITALOPRAM 20 MG TABLET. PO (08:59)
[2017-10-07] MEDS: METOCLOPRAMIDE HCL 10 MG/2 ML VIAL. IV ×2 (08:59→12:10)
[2017-10-07] MEDS: DOCUSATE 100 MG/10 ML SOLUTION. PO (08:59)
[2017-10-07] MEDS: LORazepam 1 MG TABLET PEG ×2 (08:59→14:09)
[2017-10-07] MEDS: IV NORMAL SALINE 1000ML BAG 1,000 ML IV (08:59)
[2017-10-07] MEDS: cefTRIAXone IV Push 1 GM VIAL. IVP (12:09)
== END 2017-10-07 18:02 | disposition home health service (06) | DRG 871 ==
LOC: 1 WEST ICU 20:50 → 6 SOUTH 10-06 13:14 → ER 12:32 → 6 SOUTH 09-29 15:24 → 1 WEST ICU 18:11
PROC: 02HV33Z Insertion of Infusion Device into Superior Vena Cava, Percutaneous Approach (ICD-10-PCS; principal; 2017-09-27)
PROC: 0T9430Z Drainage of Left Kidney Pelvis with Drainage Device, Percutaneous Approach (ICD-10-PCS; 2017-09-28)
DX: A41.9 Sepsis, unspecified organism (principal); R65.21 Severe sepsis with septic shock; N17.0 Acute kidney failure with tubular necrosis; E44.0 Moderate protein-calorie malnutrition; N13.6 Pyonephrosis; E87.2 Acidosis; R47.01 Aphasia; J98.11 Atelectasis; N39.0 Urinary tract infection, site not specified; R13.10 Dysphagia, unspecified; K76.0 Fatty (change of) liver, not elsewhere classified; K57.90 Diverticulosis of intestine, part unspecified, without perforation or abscess without bleeding; B96.20 Unspecified Escherichia coli [E. coli] as the cause of diseases classified elsewhere; E66.9 Obesity, unspecified; N28.1 Cyst of kidney, acquired; Z96.0 Presence of urogenital implants; Z93.0 Tracheostomy status; Z90.49 Acquired absence of other specified parts of digestive tract; Z93.1 Gastrostomy status; Z68.35 Body mass index [BMI] 35.0-35.9, adult; Z87.820 Personal history of traumatic brain injury; Z87.440 Personal history of urinary (tract) infections; Z82.49 Family history of ischemic heart disease and other diseases of the circulatory system
CPT/HCPCS: 36415; 50432; 71045; 74018; 74177; 76705; 80048; 80053; 80076; 80202; 81001; 83605; 83690; 85007; 85025; 85610; 85730; 87040; 87071; 87075; 87086; 87641; 96361; 96365; 96366; 96375; 99285; 99285-25; C1729; C1894; J0690; J0696; J0780; J1650; J2020; J2185; J2248; J2270; J2370; J2405; J2543; J2704; J2710; J2765; J3010; J3370; J3490; J7030; J7040; Q9966; Q9967; S0028

== ENCOUNTER → 2018-05-06 | Outpatient (CLI) | payer MEDICARE, BC ==
[2017-10-07 10:54] VITALS: BP 124/73
[~2018-05-06] MED LIST changes: +AMOX1TAB61 PO; +CEPH250S30 PEG; -CITA20TA5 PO; +CITA20TA6 PO; -GLYCOPYRROLATE 1 MG/5 ML VIAL. ONE; -HYDROmorphone 2 MG/ML VIAL IV PRN; -IV RINGERS,LACTATED 1000ML 1,000 ML IV SCH; -KETAMINE HCL 500 MG/10 ML VIAL. ONE; -LIDOCAINE 1% PF 2 ML VIAL. ID PRN; -LIDOCAINE 2% PF Vial for OR 5 ML VIAL. ONE; -MIDAZOLAM HCL/PF 2 MG/2 ML VIAL. ONE; -MORPHINE SULFATE 2 MG/ML DISP.SYRIN. IV PRN; -ONDANSETRON PF 4 MG/2 ML VIAL. IV PRN; -PROPOFOL 0 ML IV ONE; -ZINC50TA29 GT; +ZINC50TA39 GT; -fentaNYL PF VIAL 100 MCG/2 ML VIAL IV PRN
--- NOTE | 2018-05-06 12:20 | RAD ---
RENAL COMPLETE BILATERAL History: NEPHROLITH Comparison: October 02, 2017 CT exam Findings: Multiple sonographic images of the kidneys and urinary bladder are submitted. Right kidney measured 10.6 x 2.8 x 4.8 cm. Left kidney measured 9.4 x 3 x 3.5 cm. No significant hydronephrosis is demonstrated of either kidney. Evaluation for small calculi is limited. Urinary bladder is not well-distended, estimated volume 2 cc. Impression: 1. No significant abnormality is demonstrated. Electronically signed by: Burt Flaherty MD (05/06/2018 12:17 PM) [id number]
== END | disposition home or self-care (01) ==
LOC: US 09:44
PROVIDERS: ATTEND Internal Medicine Nephrology
DX: N20.0 Calculus of kidney (principal)
CPT/HCPCS: 76770

== ENCOUNTER → 2018-07-01 | Day surgery (SDC) | payer MEDICARE, BC ==
[~2018-07-01] MED LIST changes: +HYDROmorphone 2 MG/ML VIAL IV PRN; +IV RINGERS,LACTATED 1000ML 1,000 ML IV SCH; +LIDOCAINE 1% PF 2 ML VIAL. ID PRN; +LIDOCAINE 2% PF 5 ML VIAL. ONE; +MORPHINE SULFATE 2 MG/ML VIAL. IV PRN; +PROPOFOL 20 ML IV ONE; +fentaNYL PF VIAL 100 MCG/2 ML VIAL IV PRN
[2018-07-01 13:15] VITALS: BP 131/74
--- NOTE | 2018-07-01 23:46 | CONS ---
DATE OF CONSULTATION: 07/01/2018 REFERRING PHYSICIAN: Jenny Guzman DO. HISTORY OF PRESENT ILLNESS: This is a 43-year-old female whose past medical history is significant for oropharyngeal dysphagia, anoxic brain injury as well as diverticulosis, status post cholecystectomy, , cystoscopy, ureteral stents, is seen for PEG replacement. She has been tolerating the feedings, has done well considering other underlying medical conditions, gives no additional history at the present time. PAST MEDICAL HISTORY: Anoxic brain injury, diverticulosis, oropharyngeal dysphagia, status post cholecystectomy, PEG placement, . ALLERGIES: None. MEDICATIONS: Include vitamin C, cetirizine, citalopram, lorazepam, Reglan, tizanidine and Artane. FAMILY AND SOCIAL HISTORY: She does not drink or smoke. Lives in assisted living/longterm. REVIEW OF SYSTEMS: Per records. PHYSICAL EXAMINATION: GENERAL: Reveals a well-nourished, well-developed female who is alert, but not responsive. VITAL SIGNS: Temperature is 98, pulse 106, respiratory rate 20. HEENT: Normocephalic and atraumatic head. Pupils and extraocular muscles are not tested. Sclerae anicteric. NECK: Supple. LUNGS: Clear. CARDIOVASCULAR: Reveals an S1, S2 without S3, S4 or appreciable murmur. ABDOMEN: Soft abdomen, normal bowel sounds without appreciable hepatosplenomegaly. EXTREMITIES: Reveals no cyanosis, clubbing or edema. IMPRESSION: Dysfunctional G-tube, oropharyngeal dysphagia. We will recommend G-tube replacement. Risks and benefits have been discussed with the power of admitted attorneys and family friends are present. They are willing to proceed. GUS FISCHER MD DR: JAMIA/kyler JOB#: [id number] / [id number]
== END | disposition home or self-care (01) ==
LOC: ENDOS 10:45
PROVIDERS: ATTEND Internal Medicine Gastroenterology
DX: K94.23 Gastrostomy malfunction (principal); K29.50 Unspecified chronic gastritis without bleeding; Z90.49 Acquired absence of other specified parts of digestive tract; Z98.890 Other specified postprocedural states; Z79.899 Other long term (current) drug therapy; Y83.8 Other surgical procedures as the cause of abnormal reaction of the patient, or of later complication, without mention of misadventure at the time of the procedure
CPT/HCPCS: 43246; J2001; J2704

== ENCOUNTER 2019-04-22 14:00 | Emergency (ER) | payer MEDICARE, BC ==
[~2019-04-22] VITALS: Ht 167.6 cm; Wt 80.0 kg
[~2019-04-22 14:00] MED LIST changes: -CETI10TA22 GT; +CETI10TA24 GT; -HYDROmorphone 2 MG/ML VIAL IV PRN; -IV RINGERS,LACTATED 1000ML 1,000 ML IV SCH; -LIDOCAINE 1% PF 2 ML VIAL. ID PRN; -LIDOCAINE 2% PF 5 ML VIAL. ONE; -MORPHINE SULFATE 2 MG/ML VIAL. IV PRN; -PROPOFOL 20 ML IV ONE; -fentaNYL PF VIAL 100 MCG/2 ML VIAL IV PRN
[2019-04-22 14:50] VITALS: BP 144/64
--- NOTE | 2019-04-22 15:52 | PHYS DOC ---
Past Medical History Past Medical History: Other Additional Past Medical Histor: ANOXIC BRAIN INJURY Past Surgical History: Cholecystectomy, , Tonsillectomy, Other Additional Past Surgical Histo: TRACHEOSTOMY AND REVERSAL,G-TUBE Smoking Status: Never Smoker Alcohol Use: None Drug Use: None Adult General Chief Complaint Chief Complaint: GTUBE REPLACEMENT/MALFUNCTION [facility] HPI Patient is a 44 year old female who presents with chief complaint of pulling out her G-tube last night at 10 PM. The patient has a history of an anoxic brain injury. Family denies any additional complaints. Patient has had a G-tube for quite some time. Complete ROS were reviewed and found to be within normal limits, except as documented in the HPI Current Medications Current Medications Current Medications Medications (Trade) Dose Ordered Sig/Fercho Start Time Stop Time Status Last Admin Dose Admin Info (CONTRAST GIVEN -- Rx MONITORING) 1 each PRN DAILY PRN 04/22/19 16:00 04/24/19 15:59 Iohexol (Omnipaque 240 Mg/ml) 50 ml 1X ONCE 04/22/19 16:00 04/22/19 16:01 DC Allergies Allergies Allergies Coded Allergies Type Severity Reaction Last Updated Verified No Known Drug Allergies 07/01/18 No Physical Exam Physical Exam Constitutional: Well developed, well nourished, no acute distress, non-toxic appearance. [] HENT: Normocephalic, atraumatic, bilateral external ears normal, oropharynx moist, no oral exudates, nose normal. [] Eyes: PERRLA, EOMI, conjunctiva normal, no discharge. [] Neck: Normal range of motion, no tenderness, supple, no stridor. [] Cardiovascular:Heart rate regular rhythm, no murmur [] Lungs & Thorax: Bilateral breath sounds clear to auscultation [] Abdomen: soft, g-tube has been removed and there is a lock in place, no masses, no pulsatile masses. Psychologic: Affect normal, judgement normal, mood normal. [] Current Patient Data Vital Signs Vital Signs Date Time Temp Pulse Resp B/P (MAP) Pulse Ox O2 Delivery O2 Flow Rate FiO2 04/22/19 14:50 98.1 95 16 144/64 (90) 98 Room Air 98.1 EKG EKG [] Radiology/Procedures Radiology/Procedures [][facility] [address] [place] [address] IMAGING REPORT Signed PATIENT: PAUL EVANS MACCOUNT: [id number] : 1975 LOCATION: ER AGE: 44 SEX: F EXAM STATUS: REG ER ORD. PHYSICIAN: MAGUI MORTON APRN REASON: g-tube replaced 40CC OMNIPAQUE was injected PROCEDURE: KUB AP view of the abdomen Clinical indications: G-tube replaced. Check position. FINDINGS: AP supine portable view the abdomen was performed after injecting 40 cc of Omnipaque 300 through the indwelling gastrostomy tube. Contrast is seen within the lumen of the stomach consistent with proper placement of G-tube within the lumen of the stomach. No extravasation of contrast is seen. No obstructive bowel pattern is seen. Mild fecal retention is seen throughout the colon and rectum. Bilateral hip osteoarthritis is seen. Scoliosis is evident. IMPRESSION: Intraluminal position of gastrostomy tube. Electronically signed by: Memo Vaca MD (04/22/2019 4:14 PM) [id number] DICTATED and SIGNED BY: MEMO VACA MD DATE: 04/22/19 1614 Course & Med Decision Making Course & Med Decision Making Pertinent Labs and Imaging studies reviewed. (See chart for details) Will put new G-tube in. Will get KUB with contrast to verify. Will then have nursing place dressing on it. Dragon Disclaimer Dragon Disclaimer This electronic medical record was generated, in whole or in part, using a voice recognition dictation system. Departure Departure Impression: Primary Impression: Gastrojejunostomy tube dislodgement Disposition: 01 HOME, SELF-CARE Condition: STABLE Referrals: MIRYAM AYOUB MD (PCP) GUS FISCHER MD Additional Instructions: Thank you for visiting [facility]. We appreciate you trusting us with your care. If any additional problems come up don't hesitate to return to visit us. Please follow up with your primary care provider so they can plan additional care if needed and know about the problem that you had. If symptoms worsen come back to the Emergency Department. Any concerning symptoms that start such as chest pain, shortness of air, weakness or numbness on one side of the body, running high fevers or any other concerning symptoms return to the ER. MAGUI MORTON APRN Apr 22, 2019 15:52
[2019-04-22] MEDS ORDERED: IOHEXOL 240 MG/ML 50ML VIAL. PO ONE (16:00)
[2019-04-22] MEDS ORDERED: CONTRAST GIVEN. MC PRN (16:00)
--- NOTE | 2019-04-22 16:17 | RAD ---
AP view of the abdomen Clinical indications: G-tube replaced. Check position. FINDINGS: AP supine portable view the abdomen was performed after injecting 40 cc of Omnipaque 300 through the indwelling gastrostomy tube. Contrast is seen within the lumen of the stomach consistent with proper placement of G-tube within the lumen of the stomach. No extravasation of contrast is seen. No obstructive bowel pattern is seen. Mild fecal retention is seen throughout the colon and rectum. Bilateral hip osteoarthritis is seen. Scoliosis is evident. IMPRESSION: Intraluminal position of gastrostomy tube. Electronically signed by: Oscar Vaca MD (04/22/2019 4:14 PM) [id number]
== END 2019-04-22 16:27 | disposition home or self-care (01) ==
LOC: ER 14:00
DX: T85.528A Displacement of other gastrointestinal prosthetic devices, implants and grafts, initial encounter (principal); Y82.8 Other medical devices associated with adverse incidents; Z94.9 Transplanted organ and tissue status, unspecified; Y92.89 Other specified places as the place of occurrence of the external cause
CPT/HCPCS: 43762; 74018; 99284-25

== ENCOUNTER → 2019-05-12 | Day surgery (SDC) | payer MEDICARE, BC ==
[~2019-05-12] MED LIST changes: +IV RINGERS,LACTATED 1000ML 1,000 ML IV SCH; +LIDOCAINE 2% PF 5 ML VIAL. ONE; +PROPOFOL 20 ML IV ONE
[2019-05-12 13:55] VITALS: BP 116/60
--- NOTE | 2019-05-13 02:36 | CONS ---
DATE OF CONSULTATION: 05/12/2019 REFERRING PHYSICIAN: Jenny Guzman DO HISTORY OF PRESENT ILLNESS: This is a 44-year-old -Belarusian female with past medical history which is significant for acute anoxic brain injury, diverticulosis, oropharyngeal dysphagia, status post cholecystectomy and . Seen for dysfunctional G-tube, original was displaced, replacement was placed, which is difficult to manage. The patient and family request original tube to be replaced. PAST MEDICAL HISTORY: Anoxic brain injury, oropharyngeal dysphagia, status post cholecystectomy, PEG placement and . ALLERGIES: None. MEDICATIONS: Zyrtec, citalopram, docusate, Ativan, Reglan, Zanaflex and Artane. FAMILY AND SOCIAL HISTORY: Does not drink or smoke. She lives in a ____ Skilled Nursing. REVIEW OF SYSTEMS: Per records. PHYSICAL EXAMINATION: GENERAL: Reveals a well-nourished -Belarusian female who is alert, nonverbal. VITAL SIGNS: Temperature 97.5, pulse 69, respiratory rate 20. LUNGS: Clear. CARDIOVASCULAR: Reveals an S1, S2 without S3, S4 or appreciable murmur. ABDOMEN: Reveals a soft abdomen with left upper quadrant G-tube. EXTREMITIES: Reveals no cyanosis, clubbing, or edema. There are flexion contractures. IMPRESSION: Dysfunctional G-tube with oropharyngeal dysphagia and anoxic brain injury. PLAN: We will recommend EGD with PEG replacement. Risks, benefits were discussed with the patient's family who is present. They are willing to proceed. GUS FISCHER MD DR: JAMIA/kyler JOB#: [id number] / [id number]
== END ==
LOC: ENDOS 12:03
PROVIDERS: ATTEND Internal Medicine Gastroenterology
DX: R13.12 Dysphagia, oropharyngeal phase (principal); K29.50 Unspecified chronic gastritis without bleeding; K94.23 Gastrostomy malfunction; M79.5 Residual foreign body in soft tissue; D64.9 Anemia, unspecified; Z90.49 Acquired absence of other specified parts of digestive tract; Z86.73 Personal history of transient ischemic attack (TIA), and cerebral infarction without residual deficits; Z87.440 Personal history of urinary (tract) infections; Z87.442 Personal history of urinary calculi
CPT/HCPCS: 43246; J2001; J2704

== ENCOUNTER → 2019-10-13 | Outpatient (CLI) | payer MEDICARE, BC ==
[2019-05-12 13:55] VITALS: BP 116/60
[~2019-10-13] MED LIST changes: -IV RINGERS,LACTATED 1000ML 1,000 ML IV SCH; -LIDOCAINE 2% PF 5 ML VIAL. ONE; -PROPOFOL 20 ML IV ONE
[2019-10-13 15:26] LABS: CREATININE 0.7 mg/dL (0.6-1.0); POTASSIUM 4.3 mmol/L (3.5-5.1)
[2019-10-14 15:50] LABS: BILIRUBIN,URINE NEGATIVE (NEG); CLARITY,URINE CLOUDY; COLOR,URINE YELLOW; NITRITE,URINE POSITIVE (NEG); PH,URINE 8.5 (<5.0-8.0); PROTEIN,URINE NEGATIVE (NEG-TRACE); UROBILINOGEN,URINE 0.2 mg/dL (0.2 mg/dL)
[2019-10-14 16:03] LABS: AMORPHOUS SEDIMENT,UR PRESENT /HPF; SQUAMOUS EPITHELIAL CELL,UR MANY /LPF
[2019-10-14 16:04] LABS: BACTERIA,URINE MANY /HPF (0-FEW); RBC,URINE 20-40 /HPF (0-2); WBC,URINE 20-40 /HPF (0-4)
== END | disposition home or self-care (01) ==
LOC: LAB 13:49
PROVIDERS: ATTEND Internal Medicine Nephrology
DX: N20.0 Calculus of kidney (principal); N39.0 Urinary tract infection, site not specified
CPT/HCPCS: 36415; 80048; 81001; 82570; 84156; 87086

== ENCOUNTER 2020-02-14 15:33 | Emergency (ER) | payer MEDICARE, BC ==
[~2020-02-14] VITALS: Ht 170.2 cm; Wt 73.6 kg
[~2020-02-14 15:33] MED LIST changes: -CETI10TA24 GT; +CETI10TA74 GT
--- NOTE | 2020-02-14 16:22 | PHYS DOC ---
Past Medical History Past Medical History: Other Additional Past Medical Histor: ANOXIC BRAIN INJURY (MARIA FERNANDA BARCENAS APRN) Past Surgical History: Cholecystectomy, , Tonsillectomy, Other Additional Past Surgical Histo: TRACHEOSTOMY AND REVERSAL,G-TUBE (MARIA FERNANDA BARCENAS APRN) Smoking Status: Never Smoker Alcohol Use: None Drug Use: None (MARIA FERNANDA BARCENAS APRN) General Adult EDM: Chief Complaint: MUSCLE SPASM/CRAMP HPI: HPI: Patient is a 44 year old who is wheelchair-bound after anoxic brain injury during childbirth 20 years ago, cared for by her mother, and brought to the emergency room today for evaluation of muscle cramps and twitching to her arms, legs and face that started this morning. Mom reports she always has contrac tures but she started having muscle twitches or cramping this morning. Mom took her to urgent care today and was referred for lab work-up. Mom also reports that she has had some strong smelling urine. She has not had any fevers. (MARIA FERNANDA BARCENAS APRN) Review of Systems: Review of Systems: Constitutional: Denies fever or chills. [] Eyes: Denies change in visual acuity. [] HENT: Denies nasal congestion or sore throat. [] Respiratory: Mom reports mild cough or shortness of breath. [] Cardiovascular: Denies chest pain or edema. [] GI: Denies abdominal pain, nausea, vomiting, bloody stools or diarrhea. [] : Denies dysuria, strong smelling urine. [] Musculoskeletal: Denies back pain or joint pain. [] Integument: Denies rash. [] Neurologic: Denies headache, focal weakness or sensory changes. [] Endocrine: Denies polyuria or polydipsia. [] Lymphatic: Denies swollen glands. [] Psychiatric: Denies depression or anxiety. [] ROS obtained from mom due to patient's medical condition (MARIA FERNANDA BARCENAS APRN) Heart Score: Risk Factors: Risk Factors: DM, Current or recent (<one month) smoker, HTN, HLP, family history of CAD, obesity. Risk Scores: Score 0 - 3: 2.5% MACE over next 6 weeks - Discharge Home Score 4 - 6: 20.3% MACE over next 6 weeks - Admit for Clinical Observation Score 7 - 10: 72.7% MACE over next 6 weeks - Early Invasive Strategies (MARIA FERNANDA BARCENAS APRN) Allergies: Allergies: Allergies Coded Allergies Type Severity Reaction Last Updated Verified No Known Drug Allergies 05/12/19 No (MARIA FERNANDA BARCENAS APRN) Physical Exam: PE: Constitutional: Well developed, well nourished, no acute distress, non-toxic appearance, minimally verbal female. [] HENT: Normocephalic, atraumatic, bilateral external ears normal, oropharynx moist, nose normal. [] Eyes: PERRLA, EOMI, conjunctiva normal, no discharge. [] Neck: Normal range of motion, no tenderness, supple, no stridor. [] Cardiovascular:Heart rate regular rhythm, no murmur [] Lungs & Thorax: Bilateral breath sounds clear to auscultation [] Abdomen: Bowel sounds normal, soft, no tenderness, no masses, no pulsatile masses. [] Skin: Warm, dry, no erythema, no rash. [] Back: No tenderness, no CVA tenderness. [] Extremities: No tenderness, no cyanosis, patient has intermittent tremors to all 4 extremities, contractures of upper and lower extremities.. [] Neurologic: Alert, NORMAL NEURO STATE PER MOTHER. [] . [] (MARIA FERNANDA BARCENAS APRN) EKG: EKG: [] (MARIA FERNANDA BARCENAS APRN) Radiology/Procedures: Radiology/Procedures: [] (MARIA FERNANDA BARCENAS APRN) Course & Med Decision Making: Course & Med Decision Making Pertinent Labs and Imaging studies reviewed. (See chart for details) [][id number] Pts care transferred to Castro Sousa APRN, pending disposition decision and ua results (MARIA FERNANDA BARCENAS APRN) Course & Med Decision Making Reviewed urinalysis notes, noting urinary tract infection. Will provide prescription for antibiotics, with plan for discharge. Family agree with this plan (CASTRO SEVILLA APRN) Dragon Disclaimer: Dragon Disclaimer: This electronic medical record was generated, in whole or in part, using a voice recognition dictation system. (MARIA FERNANDA BARCENAS APRN) Departure Departure Impression: Primary Impression: Urinary tract infection Qualified Codes: N30.01 - Acute cystitis with hematuria Disposition: 01 DC HOME SELF CARE/HOMELESS Condition: STABLE Referrals: MIRYAM AYOUB MD (PCP) Patient Instructions: Urinary Tract Infection Additional Instructions: She was found to have a urinary tract infection today. Make sure she takes antibiotics as prescribed. Follow-up with your primary care provider as needed. Make sure she takes her medications as she has been. As discussed, you can give her some benadryl for her congestion. Scripts Ciprofloxacin Hcl (CIPROFLOXACIN HCL) 500 Mg Tablet 1 TAB PO BID, #14 TAB Prov: CASTRO SEVILLA APRN 02/14/20 MARIA FERNANDA BARCENAS APRN Feb 14, 2020 16:22 CASTRO SEVILLA APRN Feb 14, 2020 20:10
[2020-02-14 17:00] VITALS: BP 121/72
[2020-02-14 18:01] LABS: BASO # 0.1 x10^3/uL (0.0-0.2); BASO % 1 % (0-3); EOS # 0.2 x10^3/uL (0.0-0.7); EOS % 1 % (0-3); HEMOGLOBIN 12.9 g/dL (12.0-15.5); LYMPH # 3.8 x10^3/uL (1.0-4.8); LYMPH % 31 % (24-48); MEAN CORPUSCULAR HEMOGLOBIN 29 pg (25-35); MEAN CORPUSCULAR HGB CONC 33 g/dL (31-37); MEAN CORPUSCULAR VOLUME 87 fL (79-100); MONO % 8 % (0-9); NEUT # 7.2 x10^3/uL (1.8-7.7); NEUT % 59 % (31-73); PLATELET COUNT 200 x10^3/uL (140-400); RED BLOOD COUNT 4.51 x10^6/uL (3.50-5.40); WHITE BLOOD COUNT 12.2 x10^3/uL (4.0-11.0)
[2020-02-14 18:08] LABS: CALCIUM 9.3 mg/dL (8.5-10.1); CREATININE 0.7 mg/dL (0.6-1.0); POTASSIUM 3.9 mmol/L (3.5-5.1)
[2020-02-14 18:14] LABS: ALBUMIN 3.3 g/dL (3.4-5.0); ALBUMIN/GLOBULIN RATIO 0.7 (1.0-1.7); TOTAL BILIRUBIN 0.3 mg/dL (0.2-1.0); TOTAL PROTEIN 8.1 g/dL (6.4-8.2)
[2020-02-14 19:19] LABS: BILIRUBIN,URINE NEGATIVE (NEG); CLARITY,URINE CLEAR; COLOR,URINE YELLOW; NITRITE,URINE NEGATIVE (NEG); PH,URINE 7.5 (<5.0-8.0); PROTEIN,URINE NEGATIVE (NEG-TRACE); UROBILINOGEN,URINE 0.2 mg/dL (0.2 mg/dL)
[2020-02-14 19:24] LABS: BACTERIA,URINE MANY /HPF (0-FEW)
[2020-02-14] MEDS ORDERED: CIPR500T PO (20:09)
== END 2020-02-14 20:20 | disposition home or self-care (01) ==
LOC: ER 15:33
DX: N30.01 Acute cystitis with hematuria (principal); Z90.49 Acquired absence of other specified parts of digestive tract
CPT/HCPCS: 36415; 80053; 81001; 85025; 87086; 99283; P9612

== ENCOUNTER → 2020-05-11 | Outpatient (CLI) | payer MEDICARE, BC ==
[~2020-05-11] MED LIST changes: +CIPR500T2 PO
== END ==
LOC: LAB 13:08
PROVIDERS: ATTEND Internal Medicine Gastroenterology
DX: Z01.812 Encounter for preprocedural laboratory examination (principal); K94.23 Gastrostomy malfunction; Z20.822 Contact with and (suspected) exposure to COVID-19
CPT/HCPCS: U0003

== ENCOUNTER → 2020-05-16 | Day surgery (SDC) | payer MEDICARE, BC ==
[~2020-05-16] MED LIST changes: +PROPOFOL 10 MG/ML (20ML) VIAL. IV ONE
[2020-05-16] MEDS: IV RINGERS,LACTATED 1000ML 1,000 ML IV ONE (09:00)
--- NOTE | 2020-05-16 09:51 | CONS ---
DATE OF CONSULTATION: 05/16/2020 REFERRING PHYSICIAN: Yeny Yang. REASON FOR CONSULTATION: Oropharyngeal dysphagia with dysfunctional G-tube. HISTORY OF PRESENT ILLNESS: A 45-year-old -[place]vad[place] female with past medical history significant for anoxic brain injury, status post cholecystectomy, status post G-tube placement, status post , seen for G-tube replacement. She has been tolerating tube feedings well and denies any bleeding. Denies any change in weight or appetite and has no additional complaints at the present time. PAST MEDICAL HISTORY: Anoxic brain injury, status post , oropharyngeal dysphagia, status post cholecystectomy and PEG placement. ALLERGIES: None. MEDICATIONS: Include vitamin C, citalopram, docusate, Ativan, Reglan, tizanidine and Artane. FAMILY AND SOCIAL HISTORY: She does not drink or smoke. She lives in a penitentiary at present time. REVIEW OF SYSTEMS: Per records. PHYSICAL EXAMINATION: GENERAL: Reveals a disabled -[place]vad[place] female. VITAL SIGNS: Temperature is 97, pulse is 102, respiratory rate is 20 and sats are 98%. LUNGS: Clear. CARDIOVASCULAR: Reveals an S1, S2 without S3, S4 or appreciable murmur. ABDOMEN: Reveals a soft abdomen, normoactive bowel sounds with an intact G-tube in left upper quadrant. EXTREMITIES: Reveals the muscle contractures with anoxic brain injury. IMPRESSION AND RECOMMENDATIONS: Oropharyngeal dysphagia. We will recommend G-tube replacement with endoscopy with original tube to maintain patency and PEG stability and long-term risks and benefits have been discussed with the mother who is willing to proceed. GUS FISCHER MD DR: JAMIA/kyler JOB#: [id number] / [id number]
[2020-05-16 10:15] VITALS: BP 98/58
== END | disposition home or self-care (01) ==
LOC: ENDOS 08:07
PROVIDERS: ATTEND Internal Medicine Gastroenterology
DX: R13.12 Dysphagia, oropharyngeal phase (principal); K29.50 Unspecified chronic gastritis without bleeding; K94.23 Gastrostomy malfunction; Z87.440 Personal history of urinary (tract) infections; Z79.899 Other long term (current) drug therapy; Z98.890 Other specified postprocedural states
CPT/HCPCS: 43246; J2704

== ENCOUNTER → 2020-08-29 | Outpatient (CLI) | payer MEDICARE, BC ==
[2020-05-16 10:15] VITALS: BP 98/58
[~2020-08-29] MED LIST changes: -PROPOFOL 10 MG/ML (20ML) VIAL. IV ONE
[2020-08-29 12:45] LABS: ALBUMIN/GLOBULIN RATIO 0.8 (1.0-1.7); CALCIUM 9.2 mg/dL (8.5-10.1); CREATININE 0.8 mg/dL (0.6-1.0); GFR 93.9; POTASSIUM 4.3 mmol/L (3.5-5.1); TOTAL BILIRUBIN 0.5 mg/dL (0.2-1.0); TOTAL PROTEIN 8.9 g/dL (6.4-8.2)
[2020-08-29 13:02] LABS: BASO # 0.1 x10^3/uL (0.0-0.2); BASO % 1 % (0-3); EOS # 0.1 x10^3/uL (0.0-0.7); EOS % 1 % (0-3); HEMATOCRIT 39.8 % (36.0-47.0); HEMOGLOBIN 13.3 g/dL (12.0-15.5); LYMPH # 3.2 x10^3/uL (1.0-4.8); LYMPH % 39 % (24-48); MEAN CORPUSCULAR HEMOGLOBIN 29 pg (25-35); MEAN CORPUSCULAR HGB CONC 33 g/dL (31-37); MEAN CORPUSCULAR VOLUME 88 fL (79-100); MONO # 0.6 x10^3/uL (0.0-1.1); MONO % 8 % (0-9); NEUT # 4.2 x10^3/uL (1.8-7.7); NEUT % 52 % (31-73); PLATELET COUNT 216 x10^3/uL (140-400); RED CELL DISTRIBUTION WIDTH 13.8 % (11.5-14.5); WHITE BLOOD COUNT 8.1 x10^3/uL (4.0-11.0)
[2020-09-01 16:13] LABS: METHYLMALONIC ACID 113 nmol/L (0-378)
== END ==
LOC: LAB 11:10
PROVIDERS: ATTEND Nurse Practitioner Family
DX: Z13.21 Encounter for screening for nutritional disorder (principal); K90.9 Intestinal malabsorption, unspecified; E55.9 Vitamin D deficiency, unspecified; Z93.1 Gastrostomy status; Z79.899 Other long term (current) drug therapy
CPT/HCPCS: 36415; 80053; 82306; 82607; 83921; 84630; 85025

== ENCOUNTER → 2020-10-31 | Day surgery (SDC) | payer MEDICARE, BC ==
[~2020-10-31] VITALS: Ht 170.2 cm; Wt 70.0 kg
[~2020-10-31] MED LIST changes: +IV RINGERS,LACTATED 1000ML 1,000 ML IV SCH; +PROPOFOL 10 MG/ML (20ML) VIAL. IV ONE
[2020-10-31 08:28] VITALS: BP 108/68
--- NOTE | 2020-10-31 09:10 | CONS ---
DATE OF CONSULTATION: 10/31/2020 REASON FOR CONSULTATION: Dysfunctional G-tube, oropharyngeal dysphagia. HISTORY OF PRESENT ILLNESS: This is a 45-year-old -Albanian female with past medical history significant for anoxic brain injury, status post cholecystectomy, status post G-tube placement, , seen for repeat G-tube placement. Tube is being clogged and unable to flushing. Therefore original tube replacement is recommended. The patient otherwise is nonverbal. He has no additional complaints. The remainder of the history is per her mother. PAST MEDICAL HISTORY: Anoxic brain injury, status post , oropharyngeal dysphagia, status post cholecystectomy and PEG placement. ALLERGIES: None. MEDICATIONS: Acetaminophen, ascorbic acid, citalopram, Cytra, docusate, lorazepam, metoclopramide, Zanaflex, Narcan as well as baclofen. FAMILY AND SOCIAL HISTORY: Does not drink or smoke. She lives in a longterm. REVIEW OF SYSTEMS: Per records. PHYSICAL EXAMINATION: GENERAL: Reveals a contracted -[place]banian female who is alert and responsive, but nonverbal. VITAL SIGNS: Temperature 97.6, pulse is 80, respiratory rate 20. LUNGS: Clear. CARDIAC: S1, S2, without S3, S4 or appreciable murmur. ABDOMEN: Reveals a soft abdomen, normal bowel sounds, appreciable hepatosplenomegaly with an intact G-tube. EXTREMITIES: Reveals multiple contractures. ASSESSMENT AND PLAN: Oropharyngeal dysphagia secondary to anoxic brain injury. Recommend EGD with PEG replacement. Risks, benefits discussed with the patient's family including risk of perforation, hemorrhage, and is willing to proceed at this time. PEG tube will be flushed regularly with water to reduce the risk of re-clogging as discussed with the patient's mother. Replacement tubes with balloons were discussed with the mother. [place] that there is a risk of dislodgement of the balloon, so that original tube would be in her best interest and therefore, we will proceed with this. ELISE DR: [place] TID: [id number]
[2020-10-31 09:16] VITALS: BP 121/70
== END ==
LOC: ENDOS 08:04
PROVIDERS: ATTEND Internal Medicine Gastroenterology
DX: K94.23 Gastrostomy malfunction (principal); Z87.440 Personal history of urinary (tract) infections; Z87.442 Personal history of urinary calculi; Z79.899 Other long term (current) drug therapy; Z90.49 Acquired absence of other specified parts of digestive tract; Z98.890 Other specified postprocedural states
CPT/HCPCS: 43246; J2704

== ENCOUNTER → 2021-05-08 | Day surgery (SDC) | payer MEDICARE, BC ==
[2021-05-08 08:48] VITALS: BP 140/55
--- NOTE | 2021-05-08 09:33 | CONS ---
DATE OF CONSULTATION: 05/08/2021 REASON FOR CONSULTATION: Dysfunctional G-tube, oropharyngeal dysphagia. HISTORY OF PRESENT ILLNESS: This is a 46-year-old -Uz[place] female whose past medical history is significant for anoxic brain injury, status post cholecystectomy, status post G-tube placement, , seen for interval G-tube replacement, which has been clogged with inability to flush. G-tube replacement is recommended. The patient is otherwise nonverbal. She has no additional complaints. PAST MEDICAL HISTORY: Anoxic brain injury, status post , oropharyngeal dysphagia, status post cholecystectomy and PEG placement. ALLERGIES: None. MEDICATIONS: Include citalopram, lorazepam, Reglan, tizanidine, and Artane. FAMILY AND SOCIAL HISTORY: Per old records. Lives in a detention. Does not drink or smoke. REVIEW OF SYSTEMS: Per records. PHYSICAL EXAMINATION: GENERAL: Reveals a thin female who is not verbally responsive. VITAL SIGNS: Pulse is 80, respiratory rate is 15. LUNGS: Clear. CARDIOVASCULAR: S1, S2, without S3, S4 or appreciable murmur. ABDOMEN: Reveals a soft abdomen with multiple surgical incisions without appreciable hepatosplenomegaly with an intact G-tube, which is clogged. EXTREMITIES: Reveals multiple contractures. IMPRESSION: Oropharyngeal dysphagia with significant anoxic brain injury with dysfunctional G-tube. We will recommend EGD with PEG replacement. Risks and benefits have been discussed with the patient's mother who is present and she is willing to proceed. ALEXA DR: [place] TID: [id number]
[2021-05-08 09:35] VITALS: BP 116/56
== END | disposition home or self-care (01) ==
LOC: ENDOS 07:57
PROVIDERS: ATTEND Internal Medicine Gastroenterology
DX: R13.12 Dysphagia, oropharyngeal phase (principal); K94.23 Gastrostomy malfunction; K29.50 Unspecified chronic gastritis without bleeding; K31.89 Other diseases of stomach and duodenum; Z90.49 Acquired absence of other specified parts of digestive tract; Z98.890 Other specified postprocedural states; Z79.899 Other long term (current) drug therapy
CPT/HCPCS: 43246; J2704

== ENCOUNTER → 2021-05-14 | Day surgery (SDC) | payer MEDICARE, BC ==
[~2021-05-14] VITALS: Ht 170.2 cm; Wt 78.0 kg
[~2021-05-14] MED LIST changes: -IV RINGERS,LACTATED 1000ML 1,000 ML IV SCH; +ceFAZolin SODIUM IV Push 1 GM VIAL. IVP ONE
[2021-05-14 13:01] VITALS: BP 106/64
--- NOTE | 2021-05-14 13:38 | PDOC ---
G I PROGRESS NOTE Reason for Follow-up PEG dysfunction. EGD with peg replacement planned. Nessa tube in place. Therefore no endoscopy was performed as she tolerated feedings from last night. Review of Relevant I have reviewed the following items nelson (where applicable) has been applied. Medications Current Medications Cefazolin Sodium (Ancef) 1 gm STK-MED ONCE IVP ; Start 05/14/21 at 13:14; Stop 05/14/21 at 13:14; Status DC Propofol (Diprivan) 200 mg STK-MED ONCE IV ; Start 05/14/21 at 13:32; Stop 05/14/21 at 13:32; Status DC Active Scripts Active Reported Citalopram Hbr (Citalopram Hydrobromide) 20 Mg Tablet 20 Mg PO DAILY Acetaminophen 160 Mg/5 Ml Solution 160 Mg PO Cytra-2 Oral Solution (Citric Acid/Sodium Citrate) 473 Ml Solution 473 Ml PO DAILY [Artane] 2 Mg PEG BID Ativan (Lorazepam) 1 Mg Tablet 1 Mg PEG TID Vitamin C (Ascorbate Calcium) 500 Mg Tablet 500 Mg GT Cytra-3 Syrup (Sod/Pot/K Cit/Sod Cit/Cit Acid) 473 Ml Solution 20 Ml PO BID Zanaflex (Tizanidine Hcl) 6 Mg Capsule 6 Mg PO EVERY 6 HOURS Colace (Docusate Sodium) 50 Mg Capsule 20 Mg PO DAILY Reglan (Metoclopramide Hcl) 5 Mg Tablet 5 Mg PEG HS Vitals/I & O Vital Sign - Last 24 Hours 05/14/21 13:01 Temp 98.0 98.0 Pulse 84 Resp 20 Pulse Ox 98 Plan of Care Note Nessa replacements at home with radiology confirmatoin of replacements as needed. Justicifation of Admission Dx: Justifications for Admission: Justification of Admission Dx: Yes GUS FISCHER MD May 14, 2021 13:38
[2021-05-14 13:50] VITALS: BP 106/57
== END | disposition home or self-care (01) ==
LOC: SURG 12:18
PROVIDERS: ATTEND Internal Medicine Gastroenterology
DX: K94.23 Gastrostomy malfunction (principal); Z53.8 Procedure and treatment not carried out for other reasons; Z79.899 Other long term (current) drug therapy; Z90.49 Acquired absence of other specified parts of digestive tract; Z98.890 Other specified postprocedural states
CPT/HCPCS: J0690; J2704